=== PATIENT | female | born 2000 | race Caucasian/White ===

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

== ENCOUNTER 2022-04-01 12:08 | Emergency (ER) | payer OTHER ==
[~2022-04-01] VITALS: Ht 154.9 cm; Wt 52.2 kg
[~2022-04-01 12:08] MED LIST changes: +TUSSI PRES-B L480 ML PO; +ZITHROMAX TRI-500 MG PO
== END 2022-04-01 17:37 | disposition home or self-care (01) ==
LOC: ER 12:08
DX: U07.1 COVID-19 (principal)

== ENCOUNTER 2022-07-25 09:09 | Emergency (ER) | payer OTHER ==
[~2022-07-25] VITALS: Ht 154.9 cm; Wt 52.2 kg
== END 2022-07-25 12:01 | disposition home or self-care (01) ==
LOC: ER 09:09
DX: M25.532 Pain in left wrist (principal)

== ENCOUNTER 2023-03-07 15:31 | Emergency (ER) | payer OTHER ==
[~2023-03-07] VITALS: Ht 154.9 cm; Wt 56.7 kg
[2023-03-07 17:57] LABS: HEMATOCRIT 36.3 % (36.0-45.00); HEMOGLOBIN 12.1 g/dL (12.0-15.00); MEAN CORPUSCULAR HEMOGLOBIN 29.5 pg (27.00-32.0); MEAN CORPUSCULAR HGB CONC 33.2 g/dl (32.0-36.0); PLATELET COUNT 219 K/uL (150-450); RED BLOOD COUNT 4.08 M/uL (4.00-6.00); RED CELL DISTRIBUTION WIDTH 13.4 % (11.5-14.5)
[2023-03-07] MEDS ORDERED: PAXLOVID 300-11 EACH PO (19:01)
[2023-03-07] MEDS ORDERED: TUSNEL LIQUID178 ML PO (19:01)
== END 2023-03-07 19:11 | disposition home or self-care (01) ==
LOC: ER 15:31
PROVIDERS: Nurse Practitioner Family
DX: U07.1 COVID-19 (principal)

== ENCOUNTER 2023-04-14 20:11 | Emergency (ER) | payer OTHER ==
[~2023-04-14] VITALS: Ht 154.9 cm; Wt 56.7 kg
[~2023-04-14 20:11] MED LIST changes: +PAXLOVID 300-11 EACH PO; +TUSNEL LIQUID178 ML PO
[2023-04-14 23:16] LABS: PH,URINE 6.5 (5.0-8.0); URINE APPEARANCE Clear; URINE BILIRRUBIN Negative (NEGATIVE); URINE BLOOD Negative; URINE COLOR Yellow; URINE GLUCOSE Negative (NEGATIVE); URINE LEUKOCYTE Trace; URINE NITRATE Negative; URINE PROTEIN Negative (NEGATIVE)
[2023-04-14 23:18] LABS: HEMATOCRIT 39.4 % (36.0-45.00); HEMOGLOBIN 13.4 g/dL (12.0-15.00); MEAN CELL VOLUME 88.9 fL (80.00-100.00); MEAN CORPUSCULAR HEMOGLOBIN 30.3 pg (27.00-32.0); MEAN CORPUSCULAR HGB CONC 34.1 g/dl (32.0-36.0); PLATELET COUNT 264 K/uL (150-450); RED BLOOD COUNT 4.43 M/uL (4.00-6.00)
[2023-04-14 23:20] LABS: URINE BACTERIA 428.3 uL (0.0-1933); URINE EPITHELIAL CELLS 8.1 uL (0.0-38.8); URINE RBC 22.9 uL (0.0-20.8); URINE WBC 6.3 uL (0.0-23.2)
== END 2023-04-15 04:00 | disposition home or self-care (01) ==
LOC: ER 20:12
PROVIDERS: General Practice
DX: K52.89 Other specified noninfective gastroenteritis and colitis (principal)